=== PATIENT | female | born 1970 | race Caucasian/White ===

== ENCOUNTER 2019-12-11 16:18 | Emergency (ER) | payer OTHER ==
--- NOTE | 2019-12-11 16:28 | PDOC ---
History of Present Illness - General Stated Complaint: PAIN - History of Present Illness Initial Comments: 12/11/19 16:29 48 with HTN BIBA from home for right plank pain. Pain happened acutely this morning and progressively getting worse without any trauma/injury/fall. Patient forgot to take HTN medications. Denies f/c/n/v/d, chest pain. Her primary complained is right plank pain, radiated to the front of the abdomen, and move down to the leg, pain is sharp in nature 12/07. Denies Saddles paresthesia, ataxia, presyncope. Patient admitted to have diffuse lumbar pain and abdominal pain. In addition, patient complaint of decreased urinary stream, denies discharge/dysuria. Patient is on day 2 of her period. PMHX: as in HPI PSHX: 2 C section Meds: levothyroid, vit D2, HCT Allergies: none Tob: none Etoh: none Rec drugs: none PCP: landy [facility] [place] Nurse: daughter. ROS GENERAL/CONSTITUTIONAL: No fever or chills. No weakness. HEAD, EYES, EARS, NOSE AND THROAT: No change in vision. No ear pain or discharge. No sore throat. CARDIOVASCULAR: No chest pain or shortness of breath RESPIRATORY: No cough, wheezing, or hemoptysis. GASTROINTESTINAL: No nausea, vomiting, diarrhea ,+constipation. GENITOURINARY: No dysuria, +decreased frequency, or change in urination. MUSCULOSKELETAL: No joint or muscle swelling or pain. No neck , + back pain. SKIN: No rash NEUROLOGIC: No headache, vertigo, loss of consciousness, or change in strength/sensation. ENDOCRINE: No increased thirst. No abnormal weight change HEMATOLOGIC/LYMPHATIC: No anemia, easy bleeding, or history of blood clots. ALLERGIC/IMMUNOLOGIC: No hives or skin allergy. PE GENERAL: Awake, alert, and fully oriented, in moderate acute distress, laying uncomfortably on bed. Obese HEAD: No signs of trauma, normocephalic, atraumatic EYES: PERRLA, EOMI, sclera anicteric, conjunctiva clear ENT: Auricles normal inspection, hearing grossly normal, nares patent, oropharynx clear without exudates. Moist mucosa NECK: Normal ROM, supple, no lymphadenopathy, JVD, or masses LUNGS: No distress, speaks full sentences, clear to auscultation bilaterally HEART: Regular rate and rhythm, normal S1 and S2, no murmurs, rubs or gallops, peripheral pulses normal and equal bilaterally. ABDOMEN: Soft, , normoactive bowel sounds. No guarding, no rebound. No masses. Diffuse abdominal tenderness issa RLQ, Right flank pain. +right cva tenderness EXTREMITIES : Normal inspection, Normal range of motion, no edema. No clubbing or cyanosis. Diffused lumbar tenderness (chronic) and thoracic pain, negative leg raise straight bilaterally. NEUROLOGICAL: Cranial nerves II through XII grossly intact. Normal speech, norm al gait, no focal sensorimotor deficits SKIN: Warm, Dry, normal turgor, no rashes or lesions noted 12/11/19 16:59 Past History - Medical History Allergies/Adverse Reactions: Allergies Allergy/AdvReac Type Severity Reaction Status Date / Time No Known Allergies Allergy Verified 12/11/19 16:35 Home Medications: Ambulatory Orders Levothyroxine [Synthroid -] 75 mcg PO DAILY 12/11/19 Losartan/Hydrochlorothiazide [Losartan-Hctz 50-12.5 mg Tab] 1 each PO DAILY 12/11/19 ED Treatment Course - LABORATORY CBC & Chemistry Diagram: 12/11/19 16:28 12/11/19 16:28 Medical Decision Making - Medical Decision Making 12/11/19 16:46 48 F with HTN, and obesity BIBA from home for acute right plank pain. dx: kidney stones/ neprohydrosis, appendicits, ovary cyst, PID. -basic lab work to look for BUN/Cr, UA/UC -CT abdomen/pelvis with contrast for kidney stones vs appendicitis -pain control: morphine 4+zofran +1L fluid. -PCOS:mild hydronephrosis on the right. -EKG : vent rate 65, normal sinus rhthym,. 12/11/19 17:55 Labs are completely normal. UA is clean. 12/11/19 18:56 CT scan results showed distal right utreteral sotne measuring 4mm just proximal to the utereovesical jucntion. asocaited with moderate hydronephorsis and uterectasis with perinephric edema. Discharge - Discharge Information Problems reviewed: Yes Clinical Impression/Diagnosis: Kidney stones Condition: Good Disposition: HOME - Follow up/Referral Referrals: Chuck Berry MD [Staff Physician] - - Patient Discharge Instructions Patient Printed Discharge Instructions: DI for Kidney Stones Additional Instructions: You were seen in the ED for complaints of right plank pain. In the ED you were evaluated with bloodwork and CT scan. Your results were positive for small kidney stone which should pass with hydration and pain control. There does not appear to be an acute need for immediate hospitalization. You are advised to follow up with your Primary Care Physician and urologist within 1 week. You were given a referral for oncall urologist. Return to the ED immediately if you experience worsening abdominal pain/plank pain, severe nausea, vomiting. For pain control, please use over the counter tylenol or motrin. Please stay hydrated. Drink a lot of water. - Post Discharge Activity
[2019-12-11 16:49] VITALS: BP 165/96; PULSE 69; TEMP 97.8; BMI 31.1
--- NOTE | 2019-12-11 16:59 | PDOC ---
Documentation entered by Lula Matos SCRIBE, acting as scribe for Cora Woods MD. Cora Woods MD: This documentation has been prepared by the July whelan Sydney, SCRIBE, under my direction and personally reviewed by me in its entirety. I confirm that the documentation accurately reflects all work, treatment, procedures, and medical decision making performed by me. Attending Attestation - Resident Resident Name: Kale Arteaga - ED Attending Attestation I have performed the following: I have examined & evaluated the patient, The case was reviewed & discussed with the resident, I agree w/resident's findings & plan, Exceptions are as noted - HPI HPI: 12/11/19 16:51 Patient is a 48 year old female with a significant past medical history of HTN who presents to the ED via EMS with right-sided back pain. As per patient, her symptoms began suddenly this afternoon without any episodes of trauma or falls. She notes her sharp, 9/10 pain radiates to the front of the abdomen and down her leg. Patient reports associated abdominal pain and decreased urinary output. Patient endorses she forgot to take her hypertension medication this morning. Denies headache, fever, chills, shortness of breath, chest pain, nausea, vomiting, or diarrhea. Allergies: NKDA PCP: Dr. Brasher - Physicial Exam PE: 12/11/19 16:55 wnwd 48 yo female has had rt flank pain since this morning head ncat neck supple lungs cta b/l cvs [id number] abdomen +RLQ pain, Rt flank tenderness skin warm and dry extremities no edema, no erythema neuro axox3, ambulatory - Medical Decision Making 12/11/19 16:58 Concern for nephrolithiasis/uti/appendicitis/pyelo plan labs/ct scan. Ct scan revealed 4 mm Right UVJ stone with hydronephrosis, Pt referred to urology for outpt follow up 12/20/19 18:22 12/20/19 18:23 Discharge - Discharge Information Problems reviewed: Yes Clinical Impression/Diagnosis: Kidney stones Condition: Good Disposition: HOME - Follow up/Referral Referrals: Chuck Berry MD [Staff Physician] - - Patient Discharge Instructions Patient Printed Discharge Instructions: DI for Kidney Stones Additional Instructions: You were seen in the ED for complaints of right plank pain. In the ED you were evaluated with bloodwork and CT scan. Your results were positive for small kidney stone which should pass with hydration and pain control. There does not appear to be an acute need for immediate hospitalization. You are advised to follow up with your Primary Care Physician and urologist within 1 week. You were given a referral for oncall urologist. Return to the ED immediately if you experience worsening abdominal pain/plank pain, severe nausea, vomiting. For pain control, please use over the counter tylenol or motrin. Please stay hydrated. Drink a lot of water. - Post Discharge Activity
[2019-12-11] MEDS ORDERED: morphine CARPU-JECT 4 MG/1 ML DISP.SYRIN IVPUSH ONE (17:01)
[2019-12-11] MEDS ORDERED: ONDANSETRON 4 MG/2 ML VIAL IVPUSH ONE (17:01)
[2019-12-11 17:15] LABS: BASO % 0.3 % (0-2.0); EOS % 0.4 % (0-4.5); HEMATOCRIT 35.3 % (32.4-45.2); HEMOGLOBIN 11.6 GM/dL (10.7-15.3); LYMPH % 24.6 % (8-40); MCH 27.9 pg (25.7-33.7); MCHC 32.9 g/dl (32.0-36.0); MEAN CELL VOLUME 84.9 fl (80-96); MEAN PLT VOLUME 8.3 fl (7.5-11.1); MONO % 8.4 % (3.8-10.2); NEUT % 66.3 % (42.8-82.8); PLATELET COUNT 374 K/MM3 (134-434); RBC 4.16 M/mm3 (3.60-5.2); WHITE BLOOD COUNT 8.8 K/mm3 (4.0-10.0)
[2019-12-11 17:24] LABS: URINE APPEARANCE CLEAR; URINE BILIRUBIN NEGATIVE (NEGATIVE); URINE COLOR YELLOW; URINE GLUCOSE (UA) NEGATIVE (NEGATIVE); URINE KETONE NEGATIVE (NEGATIVE); URINE LEUK ESTERASE NEGATIVE (NEGATIVE); URINE NITRITE NEGATIVE (NEGATIVE); URINE PROTEIN TRACE (NEGATIVE); URINE UROBILINOGEN 0.2 mg/dL (0.2-1.0)
[2019-12-11] MEDS ORDERED: morphine SULFATE 4 MG/ML VIAL ONE (17:24)
[2019-12-11 17:42] LABS: ALBUMIN 3.9 g/dl (3.4-5.0); BILIRUBIN,TOTAL 0.2 mg/dL (0.2-1); BLOOD UREA NITROGEN 16.8 mg/dL (7-18); CALCIUM 9.1 mg/dL (8.5-10.1); CREATININE 0.9 mg/dL (0.55-1.3); TOT PROT 8.3 g/dl (6.4-8.2)
[2019-12-11] MEDS ORDERED: LACTATED RINGERS SOLUTION 1000 ML INFUS.BAG IV ONE (17:45)
[2019-12-11] MEDS ORDERED: KETOROLAC TROMETHAMINE 15 MG/ML VIAL IVPUSH ONE (18:55)
[2019-12-11] MEDS ORDERED: KETOROLAC TROMETHAMINE 15 MG/ML VIAL ONE (19:09)
--- NOTE | 2019-12-12 10:40 | EKG ---
Test Reason : Blood Pressure : / mmHG Vent. Rate : 065 BPM Atrial Rate : 065 BPM P-R Int : 144 ms QRS Dur : 082 ms QT Int : 410 ms P-R-T Axes : 053 016 048 degrees QTc Int : 426 ms NORMAL SINUS RHYTHM NORMAL ECG NO PREVIOUS ECGS AVAILABLE Confirmed by MINGO SOMMER MD ([id number]) on 12/12/2019 10:40:18 AM Referred By: Confirmed By:MINGO SOMMER MD
== END 2019-12-11 19:21 | disposition home or self-care (01) ==
LOC: JER 16:18
PROC: 3E033NZ Introduction of Analgesics, Hypnotics, Sedatives into Peripheral Vein, Percutaneous Approach (ICD-10-PCS; principal; 2019-12-11)
PROC: 3E033GC Introduction of Other Therapeutic Substance into Peripheral Vein, Percutaneous Approach (ICD-10-PCS; 2019-12-11)
DX: N20.0 Calculus of kidney (principal)
CPT/HCPCS: 36415; 74177-TC; 80053; 81003; 84484; 84703; 85025; 87086; 93005; 93010; 99285-25; Q9967

== ENCOUNTER 2021-08-16 10:33 | Emergency (ER) | payer OTHER ==
[2021-08-16 10:57] VITALS: BP 170/98; PULSE 73; TEMP 98.6; BMI 33.3
[2021-08-16] MEDS ORDERED: LIDOCAINE 5% TOPICAL PATCH TP ONE (12:56)
[2021-08-16] MEDS ORDERED: KETOROLAC TROMETHAMINE 30 MG/1 ML VIAL IM ONE (12:56)
[2021-08-16] MEDS ORDERED: ACETAMINOPHEN 500 MG TABLET (FP) PO ONE (13:37)
[2021-08-16] MEDS ORDERED: ACETAMINOPHEN 500 MG TABLET (FP) ONE (13:45)
[2021-08-16] MEDS ORDERED: LIDOCAINE 5% TOPICAL PATCH ONE (14:09)
[2021-08-16] MEDS ORDERED: KETOROLAC TROMETHAMINE 30 MG/1 ML VIAL ONE (14:09)
[2021-08-16] MEDS ORDERED: LIDOCAINE PATCH REMOVAL MC SCH (22:00)
== END 2021-08-16 14:38 | disposition home or self-care (01) ==
LOC: JERFT 10:33
PROC: 3E0233Z Introduction of Anti-inflammatory into Muscle, Percutaneous Approach (ICD-10-PCS; principal; 2021-08-16)
DX: M25.512 Pain in left shoulder (principal); M25.562 Pain in left knee; M79.644 Pain in right finger(s)
CPT/HCPCS: 73030-TC-LT-FY; 73140-TC-RT-FY; 73562-TC-LT-FY; 99284-25

== ENCOUNTER 2022-06-16 18:55 | Emergency (ER) | payer OTHER ==
[2022-06-16 19:17] VITALS: BP 155/92; PULSE 82; RESP 18; TEMP 98.5; BMI 31.6
== END 2022-06-16 21:35 | disposition home or self-care (01) ==
LOC: JER 18:55
DX: I10 Essential (primary) hypertension (principal)
CPT/HCPCS: 93005; 93010; 99283-25